=== PATIENT | male | born 1980 | race Caucasian/White ===

== ENCOUNTER 2023-03-13 14:40 | Emergency (ER) | payer OTHER ==
[2023-03-13] MEDS ORDERED: ACETAMINOPHEN TAB 325 MG TAB PO STA (15:33)
--- NOTE | 2023-03-13 16:09 | XR ---
EXAMINATION TYPE: XR wrist complete RT DATE OF EXAM: 03/13/2023 3:58 PM INDICATION: Patient age:Male; 41 years old; Reason for study: fall, 02/20/23 COMPARISON: None TECHNIQUE: right wrist was examined in the. Frontal, navicular, lateral, and oblique. FINDINGS/IMPRESSION: 1. No acute osseous pathology. 2. Chronic appearing fracture of the scaphoid. Remote appearing ulnar styloid process fracture. Cons ider further evaluation with MRI.
--- NOTE | 2023-03-13 16:52 | ED ---
General Adult HPI - General Chief complaint: Extremity Injury, Upper Stated complaint: R Wrist Swollen Time Seen by Provider: 03/13/23 15:06 Source: patient, RN notes reviewed Mode of arrival: ambulatory Limitations: no limitations - History of Present Illness Initial comments: 41-year-old male presents to the emergency department chief complaint of right wrist and hand pain. Patient states that he took a fall on February 20 and was evaluated at [facility] in [place]. He reports that there was no fractures at that time and he was placed in Qamar bandage and told to follow up with his primary care provider. Patient reports that he is continuing to have swelling and pain in the left wrist and hand without improvement. Patient reports swelling to the lateral aspect of the wrist and medial portion of the hand. He reports no significant past medical history and has no known medication ALLERGIES. - Related Data Allergies Allergy/AdvReac Type Severity Reaction Status Date / Time No Known Allergies Allergy Verified 03/13/23 14:43 Review of Systems ROS Statement: Those systems with pertinent positive or pertinent negative responses have been documented in the HPI. ROS Other: All systems not noted in ROS Statement are negative. Past Medical History Past Medical History: No Reported History Past Surgical History: No Surgical Hx Reported Smoking Status: Current every day smoker Past Alcohol Use History: Abuse, Daily Past Drug Use History: Heroin General Exam Limitations: no limitations General appearance: alert, in no apparent distress Head exam: Present: atraumatic, normocephalic, normal inspection Eye exam: Present: normal appearance, PERRL, EOMI. Absent: scleral icterus, conjunctival injection, periorbital swelling ENT exam: Present: normal exam, mucous membranes moist Neck exam: Present: normal inspection. Absent: tenderness, meningismus, lymphadenopathy Respiratory exam: Present: normal lung sounds bilaterally. Absent: respiratory distress, wheezes, rales, rhonchi, stridor Cardiovascular Exam: Present: regular rate, normal rhythm, normal heart sounds. Absent: systolic murmur, diastolic murmur, rubs, gallop, clicks GI/Abdominal exam: Present: soft, normal bowel sounds. Absent: distended, tenderness, guarding, rebound, rigid Extremities exam: Present: tenderness (snuffbox), normal capillary refill, other (radial Pulses 2+, 5 out of 5 strength in upper extremities, swelling to the right wrist and hand, mild decrease ROM in the hand due to pain) Back exam: Present: normal inspection Neurological exam: Present: alert, oriented X3 Psychiatric exam: Present: normal affect, normal mood Skin exam: Present: warm, dry, intact, normal color. Absent: rash Course Vital Signs 03/13/23 14:41 Temperature 97.8 F Pulse Rate 56 L Respiratory 18 Rate Blood Pressure 108/70 O2 Sat by Pulse 97 Oximetry Procedures - Orthopedic Splinting/Casting Injury #1 Side: right Upper Extremity Injury Location: hand Upper Extremity Immobilizer: thumb spica Medical Decision Making - Medical Decision Making Was pt. sent in by a medical professional or institution (, PA, [facility], urgent care, hospital, or residential...) When possible be specific @ -No Did you speak to anyone other than the patient for history (EMS, parent, family, police, friend...)? What history was obtained from this source @ -No Did you review nursing and triage notes (agree or disagree)? Why? @ -I reviewed and agree with nursing and triage notes Were old charts reviewed (outside hosp., previous admission, EMS record, old EKG, old radiological studies, urgent care reports/EKG's, residential records)? Report findings @ -No old charts were reviewed Differential Diagnosis (chest pain, altered mental status, abdominal pain women, abdominal pain men, vaginal bleeding, weakness, fever, dyspnea, syncope, headache, dizziness, GI bleed, back pain, seizure, CVA, palpatations, mental health, musculoskeletal)? @ -Differential Musculoskeletal Muscular strain, contusion, ligament sprain, fracture, arthritis, septic arthritis, bursitis, cellulitis, muscle spasm, nerve compression, DVT, arterial occlusion, herpes zoster, electrolyte abnormality, tumor.... This is not meant to be in all inclusive list EKG interpreted by me (3pts min.). @ -none X-rays interpreted by me (1pt min.). @ -X-ray of the right wrist showed chronic appearing fracture of the scaphoid, ulnar styloid process fracture CT interpreted by me (1pt min.). @ -None done U/S interpreted by me (1pt. min.). @ -None done What testing was considered but not performed or refused? (CT, X-rays, U/S, labs)? Why? @ -None What meds were considered but not given or refused? Why? @ -None Did you discuss the management of the patient with other professionals (professionals i.e. DrRoseanne, PA, [employer], lab, RT, psych nurse, social group worker, graphic art sales representative, teacher, hydrographical technical officer, outpatient case manager)? Give summary @ -No Was smoking cessation discussed for >3mins.? @ -No Was critical care preformed (if so, how long)? @ -No Were there social determinants of health that impacted care today? How? (Homelessness, low income, unemployed, alcoholism, drug addiction, transportation, low edu. Level, literacy, decrease access to med. care, penitentiary, rehab)? @ -No Was there de-escalation of care discussed even if they declined (Discuss DNR or withdrawal of care, Hospice)? DNR status @ -No What co-morbidities impacted this encounter? (DM, HTN, Smoking, COPD, CAD, Cancer, CVA, ARF, Chemo, Hep., AIDS, mental health diagnosis, sleep apnea, morbid obesity)? @ -None Was patient admitted / discharged? Hospital course, mention meds given and route, prescriptions, significant lab abnormalities, going to OR and other pertinent info. @ -Discharged. Patient presented to emergency department chief complaint of right wrist and hand pain 3 weeks following a fall that occurred on February 20. Patient continues to have swelling and pain to the right hand with anatomical snuffbox tenderness. X-ray obtained which showed chronic appearing fracture of the scaphoid, ulnar styloid fracture. Patient was placed in a thumb spica splint given follow-up given for orthopedics. Patient stable upon discharge. Case discussed with my attending, Dr. Holt Undiagnosed new problem with uncertain prognosis? @ -No Drug Therapy requiring intensive monitoring for toxicity (Heparin, Nitro, Insulin, Cardizem)? @ -No Were any procedures done? @ -splint Diagnosis/symptom? @ -scaphoid fracture Acute, or Chronic, or Acute on Chronic? @ -acute Uncomplicated (without systemic symptoms) or Complicated (systemic symptoms)? @ -uncomplicated Side effects of treatment? @ -No Exacerbation, Progression, or Severe Exacerbation? @ -No Poses a threat to life or bodily function? How? (Chest pain, [place], [place], pneumonia, PE, COPD, DKA, ARF, appy, cholecystitis, CVA, Diverticulitis, Homicidal, Suicidal, threat to staff... and all critical care pts) @ -No Disposition Clinical Impression: Tenderness of anatomical snuffbox Disposition: HOME SELF-CARE Condition: Stable Instructions (If sedation given, give patient instructions): Wrist Injury (ED), Hand Fracture (ED) Additional Instructions: Follow up with orthopedics in the next 1-2 days. Return to the emergency department for new or worsening symptoms. Is patient prescribed a controlled substance at d/c from ED?: No Referrals: None,Stated [Primary Care Provider] - 1-2 days Bala Mitchell DO [Doctor of Osteopathic Medicine] - 1-2 days Time of Disposition: 16:56
[2023-03-13 17:33] VITALS: BP 136/76; PULSE 86; RESP 16; TEMP 98.1
== END 2023-03-13 17:33 | disposition home or self-care (01) ==
LOC: EC 14:40 → EDBD 14:40 → EC 17:33
DX: S62.001A Unspecified fracture of navicular [scaphoid] bone of right wrist, initial encounter for closed fracture (principal); F17.200 Nicotine dependence, unspecified, uncomplicated; F11.10 Opioid abuse, uncomplicated; W19.XXXA Unspecified fall, initial encounter
CPT/HCPCS: 29125; 99283